=== PATIENT | male | born 1980 | race Caucasian/White ===

== ENCOUNTER 2024-03-07 10:57 | Emergency (ER) | payer BC, OTHER ==
[~2024-03-07] VITALS: Ht 180.3 cm; Wt 82.0 kg
[2024-03-07] MEDS: TAMSULOSIN HYDROCHLORIDE 0.4 MG CAP PO ONE (11:29)
[2024-03-07] MEDS: METOCLOPRAMIDE HCL 5MG/ml INJ 2ml VIAL IV ONE (11:29)
[2024-03-07] MEDS: KETOROLAC TROMETH 30 MG/ML 1ML VIAL IV ONE (11:30)
[2024-03-07] MEDS: SODIUM CHLORIDE 0.9% 1,000 ML IVB ONE (11:30)
[2024-03-07 11:36] VITALS: PULSE 84; RESP 19; O2SAT 97
[2024-03-07 11:43] LABS: Basophils # (auto) 0.1 10 ^3/uL (0-0.2); Basophils % (auto) 0.7 % (0.0-2.0); Eosinophils # (auto) 0 10 ^3/uL (0-0.8); Eosinophils % (auto) 0.1 % (0.0-7.0); Hematocrit 43.1 % (41.0-53.0); Hemoglobin 14.6 g/dL (13.5-17.5); Lymphocytes # (auto) 0.9 10 ^3/uL (0.4-5.4); Mean Corpuscular Hemoglobin 32.8 pg (28.0-32.0); Mean Corpuscular Hgb Conc. 33.8 g/dL (32.0-36.0); Mean Corpuscular Volume 96.9 fL (80.0-100.0); Monocytes # (auto) 0.4 10 ^3/uL (0-1.3); Monocytes % (auto) 3.5 % (0.0-12.0); Neutrophils % (auto) 87.7 % (37.0-80.0); Red Blood Cells 4.45 10^6/uL (4.5-5.90); Red Cell Distribution Width 13.1 % (11.8-14.3); White Blood Cell 11.4 10^3/uL (4.4-10.8)
[2024-03-07 11:53] LABS: Chloride 101 mmol/L (98-107); Potassium 3.8 mmol/L (3.5-5.1); Sodium 137 mmol/L (136-145)
[2024-03-07 11:54] LABS: Anion Gap 4 (5-15); Calcium 10.5 mg/dL (8.7-10.4); Carbon Dioxide 32 mmol/L (20-30)
[2024-03-07 11:59] LABS: BUN/Creatinine Ratio 13.5 (10.0-20.0); Blood Urea Nitrogen 17 mg/dL (9-23); Glucose 157 mg/dL (74-106)
[2024-03-07] MEDS ORDERED: DICL50TA2 PO (15:30)
[2024-03-07] MEDS ORDERED: TAMS-35 PO (15:30)
[2024-03-07] MEDS ORDERED: HYDR-4902 PO (15:30)
[2024-03-07 15:51] VITALS: BP 131/74; PULSE 88; RESP 20; TEMP 98; O2SAT 100
== END 2024-03-07 15:58 | disposition home or self-care (01) ==
LOC: ER 10:57
DX: N13.2 Hydronephrosis with renal and ureteral calculous obstruction (principal); R10.9 Unspecified abdominal pain
CPT/HCPCS: 36415; 74176; 80048; 85025; 96361; 96374; 96375; 99285; J1885; J2765; J7030